=== PATIENT | male | born 1980 | race Caucasian/White ===

== ENCOUNTER 2017-04-25 08:30 | Emergency (ER) | payer OTHER ==
[~2017-04-25] VITALS: Ht 180.3 cm; Wt 104.2 kg
[~2017-04-25 08:30] MED LIST: MOTRIN600 MG PO; NOHOMEMEDS; NORCO 5/3251 TABLET PO; PRILOSEC10 MG PO
[2017-04-25 10:59] LABS: ADD MIUA? NO; BILIRUBIN NEGATIVE; BLOOD NEGATIVE; COLOR YELLOW ((YELLOW)); GLUCOSE (STRIP) 50; KETONES NEGATIVE; LEUKOCYTES NEGATIVE; NITRITE NEGATIVE; PROTEIN (STRIP) NEGATIVE; SPECIFIC GRAVITY 1.023 (1.000-1.030); UCUL ADDED? NO; UROBILINOGEN 0.2 MG/DL (0.2-1.0)
[2017-04-25] MEDS ORDERED: MOTRIN800 MG PO (11:38)
[2017-04-25] MEDS ORDERED: PERCOCET 5/31 TABLET PO (11:38)
[2017-04-25 11:49] VITALS: BP 153/100
== END 2017-04-25 11:50 | disposition home or self-care (01) ==
LOC: EME 08:30
PROVIDERS: Emergency Medicine
DX: N50.812 Left testicular pain (principal); N43.3 Hydrocele, unspecified; N50.3 Cyst of epididymis; Z87.891 Personal history of nicotine dependence
CPT/HCPCS: 76870; 81003; 99281; 99284